=== PATIENT | female | born 1960 | race Caucasian/White ===

== ENCOUNTER 2016-10-23 22:51 | Emergency (ER) | payer OTHER ==
[~2016-10-23] VITALS: Ht 157.5 cm; Wt 59.0 kg
[~2016-10-23 22:51] MED LIST: ALBU8.5H3 INH; PRED20TA PO; RTPRO NEB
[2016-10-23 22:56] VITALS: Ht 157.5 cm; Wt 59.0 kg
[2016-10-23] MEDS ORDERED: KETO5DRO58 OP (23:43)
[2016-10-23] MEDS ORDERED: OLOP5DRO12 BOTH EYES (23:44)
[2016-10-23] MEDS ORDERED: BEN25 PO (23:45)
[2016-10-24 00:08] VITALS: BP 151/68; PULSE 64; RESP 20; TEMP 97.4
--- NOTE | 2016-10-24 00:38 | ERD ---
ER Documentation Chief Complaint Date/Time DATE: 10/24/16 TIME: 00:35 Chief Complaint c/o sore and watery eyes x 1 week HPI This patient is a 56-year-old female with past medical history of glaucoma, seasonal allergies, and asthma presenting to the emergency department complaining of sore, watery, itchy eyes ongoing intermittently for the past week. Symptoms are worse at night. Symptoms are worsening. She describes them as mild in severity. She denies any foreign body sensation. She does not wear contacts. She denies double vision. She denies fevers, chills, or other symptoms. ROS All systems reviewed and are negative except as per history of present illness. Medications Home Meds Active Scripts Diphenhydramine Hcl* (Benadryl*) 25 Mg Cap, 25 MG PO Q6, #20 CAP Prov:LANI BECERRIL PA-C 10/23/16 Olopatadine* (Patanol* Ophth) 0.1% - 5 Ml Drops, 1 DROP BOTH EYES BID, #1 EA Prov:LANI BECERRIL PA-C 10/23/16 Ketotifen Fumarate (ZADITOR) 5 Ml Drops, 5 ML OP TID for ITCHING, #1 BOTTLE Prov:LANI BECERRIL PA-C 10/23/16 Prednisone* (Prednisone*) 20 Mg Tab, 60 MG PO DAILY, #4 TAB Prov:SCAR DE PAZ PA-C 06/13/15 Albuterol Sulfate* (Proair HFA*) 8.5 Gm Hfa.aer.ad, 2 PUFF INH Q4, #1 INHALER Prov:SCAR DE PAZ PA-C 06/13/15 Albuterol Sulfate* (Proventil* Neb) 0.083% Neb, 2.5 MG NEB Q4 Y for SHORTNESS OF BREATH, #30 EA Prov:SCAR DE PAZ PA-C 06/13/15 Allergies Allergies: Coded Allergies: amoxicillin (Verified Allergy, Unknown, ITCHY RASH, 10/23/16) PMhx/Soc Anesthesia Reaction: No (GLAUCOMA) Hx Neurological Disorder: Yes Hx Cardiac Disorders: No Hx Psychiatric Problems: No Hx Alcohol Use: No Hx Substance Use: No Hx Tobacco Use: No Smoking Status: Never smoker Physical Exam Vitals Vital Signs Date Time Temp Pulse Resp B/P Pulse Ox O2 Delivery O2 Flow Rate FiO2 10/24/16 00:08 97.4 64 20 151/68 98 Room Air 10/23/16 22:56 98.0 70 20 140/63 98 Physical Exam Const: Nontoxic, well-appearing female in no apparent distress. Head: Atraumatic Eyes: Is bilateral mild conjunctival injection but no discharge noted. ENT: Normal External Ears, Nose and Mouth. Neck: Full range of motion..~ No meningismus. Resp: Clear to auscultation bilaterally Cardio: Regular rate and rhythm, no murmurs Abd: Soft, non tender, non distended. Normal bowel sounds Skin: No petechiae or rashes Back: No midline or flank tenderness Ext: No cyanosis, or edema Neur: Awake and alert Psych: Normal Mood and Affect Procedures/MDM 48-year-old female presents to the emergency department with complaints of bilateral itching, watery, sore eyes. On physical examination the patient's blood pressure was slightly elevated at 140/63. Patient's blood pressure was elevated (>120/80) but appears stable without evidence of hypertension emergency or urgency. The patient was counseled about the risks of hypertension and urged to pursue outpatient monitoring and therapy within a week with their primary care physician. Examination of the eyes is consistent with conjunctivitis, most likely allergic in etiology. There were no changes in visual acuity. The patient stable for outpatient management with a prescription for olopatadine ophthalmic and oral Benadryl. The patient understands the discharge plan and diagnosis. I have low suspicion for corneal ulcer, periorbital cellulitis, septicemia, or other emergent conditions. The patient is to have close follow-up with her eye doctor and primary care physician. Strict ER return precautions were discussed. Departure Diagnosis: Primary Impression: Conjunctivitis Condition: Fair Patient Instructions: Conjunctivitis, Allergic Referrals: COMM[facility] CL[facility] YOU HAVE RECEIVED A MEDICAL SCREENING EXAM AND THE RESULTS INDICATE THAT YOU DO NOT HAVE A CONDITION THAT REQUIRES URGENT TREATMENT IN THE EMERGENCY DEPARTMENT. FURTHER EVALUATION AND TREATMENT OF YOUR CONDITION CAN WAIT UNTIL YOU ARE SEEN IN YOUR DOCTORS OFFICE WITHIN THE NEXT 1-2 DAYS. IT IS YOUR RESPONSIBILITY TO MAKE AN APPOINTMENT FOR FOLOW-UP CARE. IF YOU HAVE A PRIMARY DOCTOR --you should call your primary doctor and schedule an appointment IF YOU DO NOT HAVE A PRIMARY DOCTOR YOU CAN CALL OUR PHYSICIAN REFERRAL HOTLINE AT IF YOU CAN NOT AFFORD TO SEE A PHYSICIAN YOU CAN CHOSE FROM THE FOLLOWING [facility] [id number] [facility] [address] [facility] [address] [facility] [address] [facility] [address] [facility]. [facility]. [address] Additional Instructions: No mas mejor en 2-3 padilla, regresar. Mas peor en 24 horas, regresear rapidamente. Ir a doctor primario in 5-7 padilla. Usar instrucciones cuando sergey medicamento. LANI BECERRIL PA-C Oct 24, 2016 00:38
== END 2016-10-24 00:09 | disposition home or self-care (01) ==
LOC: FTE 22:51
DX: H10.9 Unspecified conjunctivitis (principal)
CPT/HCPCS: 99283